=== PATIENT | male | born 1960 | race Caucasian/White ===

== ENCOUNTER → 2017-10-09 | Outpatient (CLI) | payer OTHER ==
[~2017-10-09] MED LIST: OMNIPAQUE 350 MG/ML, 75ML BOTTLE ONE
== END | disposition home or self-care (01) ==
LOC: RAD 14:33
PROVIDERS: ATTEND Nurse Practitioner Primary Care
DX: M47.894 Other spondylosis, thoracic region (principal); M50.30 Other cervical disc degeneration, unspecified cervical region; R05 Cough; R79.9 Abnormal finding of blood chemistry, unspecified
CPT/HCPCS: 71260; 72072; 72141; Q9967